=== PATIENT | male | born 1960 | race Caucasian/White ===

== ENCOUNTER → 2021-06-07 07:58 | Outpatient (CLI) | payer BC, SELFPAY ==
[2021-06-07 18:55] LABS: SARS-CoV-2 RNA PCR Negative
== END ==
PROVIDERS: PCP Student in an Organized Health Care Education/Training Program; Visit Provider Student in an Organized Health Care Education/Training Program
DX: Z20.822 Contact with and (suspected) exposure to COVID-19 (principal)
CPT/HCPCS: C9803; U0003; U0005